=== PATIENT | female | born 1990 | race Caucasian/White ===

== ENCOUNTER 2021-12-04 12:22 | Emergency (ER) | payer OTHER ==
[~2021-12-04] VITALS: Ht 157.5 cm; Wt 77.1 kg
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
[2021-12-04] MEDS ORDERED: IBUPROFEN 600 MG TABLET ONE (13:58)
[2021-12-04] MEDS ORDERED: IBUPROFEN 600 MG TABLET PO ONE (14:00)
[2021-12-04] MEDS ORDERED: IBUP-1955 PO (14:58)
[2021-12-04] MEDS ORDERED: CYCL5TAB PO (14:58)
--- NOTE | 2021-12-04 15:00 | NUR ---
Patient discharged to home in stable condition. Written and verbal after care instructions given. Patient verbalizes understanding of instruction.
[2021-12-04 15:01] VITALS: BP 115/71
== END 2021-12-04 15:01 | disposition home or self-care (01) ==
LOC: ER 12:30
DX: M54.42 Lumbago with sciatica, left side (principal); D64.9 Anemia, unspecified; Z79.899 Other long term (current) drug therapy
CPT/HCPCS: 72110-TC